=== PATIENT | male | born 1990 | race African-American/Black ===

== ENCOUNTER 2017-06-01 12:50 | Emergency (ER) | payer OTHER ==
[~2017-06-01] VITALS: Ht 180.3 cm; Wt 79.4 kg
[~2017-06-01 12:50] MED LIST: DOXYCYCLINE 10100 MG PO; NAPROSYN500 MG PO; NOHOMEMEDICATIONS; NORFLEX100 MG PO; ONDANSETRON HCL4 M2 PO; PRILOSEC40 MG PO; ULTRAM 50MG TAB50 MG PO; ZOFRAN ODT4 MG PO
[2017-06-01] MEDS ORDERED: FLONASE 0.05%50 MCG NASAL (13:58)
[2017-06-01] MEDS ORDERED: PREDNISONE 20 M20 MG PO (13:58)
[2017-06-01] MEDS ORDERED: DOXYCYCLINE 10100 MG PO (13:58)
[2017-06-01 14:10] VITALS: BP 140/96
== END 2017-06-01 14:11 | disposition home or self-care (01) ==
LOC: ER 12:50
DX: H57.12 Ocular pain, left eye (principal); R09.82 Postnasal drip; F10.99 Alcohol use, unspecified with unspecified alcohol-induced disorder; F17.210 Nicotine dependence, cigarettes, uncomplicated

== ENCOUNTER 2019-02-26 14:26 | Emergency (ER) | payer OTHER ==
[~2019-02-26] VITALS: Ht 180.3 cm; Wt 79.4 kg
[~2019-02-26 14:26] MED LIST changes: +FLONASE 0.05%50 MCG NASAL; +PREDNISONE 20 M20 MG PO
[2019-02-26 14:27] VITALS: BP 119/84
[2019-02-26] MEDS ORDERED: IBUPROFEN 600600 M1 PO (14:47)
[2019-02-26] MEDS ORDERED: TESSALON PERLE100 MG PO (14:47)
[2019-02-26] MEDS ORDERED: CLARITIN10 MG PO (14:47)
== END 2019-02-26 15:23 | disposition home or self-care (01) ==
LOC: ER 14:26
DX: J06.9 Acute upper respiratory infection, unspecified (principal); F17.210 Nicotine dependence, cigarettes, uncomplicated